=== PATIENT | female | born 1995 | race Caucasian/White ===

== ENCOUNTER 2017-01-31 17:39 | Inpatient (IN) | payer BC ==
[~2017-01-31] VITALS: Ht 160 cm; Wt 61.1 kg
[2017-01-31] MEDS ORDERED: SODIUM CHLORIDE 0.9% 1000ML 500 ML IV STA (20:00)
[2017-01-31] MEDS ORDERED: ACETAMINOPHEN 500 MG TAB PO STA (20:00)
[2017-01-31] MEDS ORDERED: KETOROLAC TROMETHAMINE 30 MG/ML VIAL IV STA (20:00)
[2017-01-31] MEDS ORDERED: ONDANSETRON INJ 2 MG/ML 2 ML VIAL IV STA (20:00)
[2017-01-31] MEDS ORDERED: SODIUM CHLORIDE 0.9% 1000ML 1,000 ML IV STA (20:00)
[2017-01-31] MEDS ORDERED: CEFTRIAXONE SOD INJ 2,000 MG in DEXTROSE 5% 50ML 50 ML IV STA (20:00)
--- NOTE | 2017-01-31 20:06 | EMERGENCY ROOM VISIT NOTE ---
History Report prepared by Henrique: Jose Martinez Under the Supervision of: Dr. Misha Trotter M.D. First contact with patient: 19:46 Chief Complaint: URINARY SYMPTOMS Stated Complaint: KIDNEY INFECTION,BACK PAINAND NAUSEA Nursing Triage Summary: pt currently being treated for uti with levaquin, pt c/o lower back pain, abd pain and nausea History of Present Illness The patient is a 21 year old female who presents to the Emergency Room with complaints of worsening pain in her right lower flank pain that began this morning, several hours prior to arrival. The patient was seen at [facility], 4 days prior to this visit and was diagnosed with a Urinary/ Kidney infection. She was placed on Levaquin 750 mg following this visit. She complains that the Levaquin caused severe migraines and nausea. The patient was experiencing urinary burning, increased frequency, and increased urgency as early as 10 days before her diagnosis at [facility]. She also started to notice blood in her urine on Friday, 5 days prior to this visit. At this time the patient's urinary symptoms have resolved but the pain in her right flank has worsened significantly. She rates her current pain as a 7/10 in severity. The patient is still nauseous but has not vomited. She has no history of kidney infection or kidney stones, but notes that her father gets kidney stones frequently. Source of History: patient Onset: Several Hours SONOGRAPHY TECHNICIAN Position: back (Right Lower Flank) Symptom Intensity: 7/10 in severity Timing: worsening Associated Symptoms: + headache, + nausea, No urinary symptoms, No vomiting Review of Systems See HPI for pertinent positives & negatives. A total of 10 systems reviewed and were otherwise negative. Past Medical & Surgical Patient denies any past medical/surgical histories. Family History Cancer Diabetes mellitus Hypertension Social History Smoking Status: Never Smoker Marital Status: in relationship Housing Status: lives with roommate Occupation Status: [employer] student Current/Historical Medications Scheduled Levofloxacin (Levaquin), 750 MG PO DAILY Scheduled PRN Ondasetron Odt (Zofran Odt), 4 MG SL UD PRN for Nausea Allergies Coded Allergies: No Known Allergies (Unverified , 01/31/17) Physical Exam Vital Signs Date Time Temp Pulse Resp B/P Pulse Ox O2 Delivery O2 Flow Rate FiO2 01/31/17 22:33 72 16 105/78 97 Room Air 01/31/17 21:12 59 16 109/73 98 01/31/17 20:09 55 16 121/84 98 Room Air 01/31/17 17:46 37.0 58 18 121/80 98 Room Air Physical Exam GENERAL: Patient is in no acute distress. HEENT: No acute trauma, normocephalic atraumatic, mucous membranes moist, no nasal congestion, no scleral icterus. NECK: No stridor, no adenopathy, no meningismus, trachea is midline. LUNGS: Clear to auscultation bilaterally, no wheeze, no rhonchi, breath sounds equal. HEART: Without murmurs gallops or rubs, regular rate and rhythm. ABDOMEN: Tender primarily in the LUQ, but there is some diffuse mild tenderness. Soft, bowel sounds positive, no hernias, no peritonitis. BACK: Bilateral flank discomfort with percussion. EXTREMITIES: No cyanosis or edema, full range of motion of all the joints without pain or difficulty, no signs for acute trauma. NEUROLOGIC: Oriented x 3, no acute motor or sensory deficits, no focal weakness. SKIN: No rash, no jaundice, no diaphoresis. Medical Decision & Procedures ER Provider Diagnostic Interpretation: X ray results and stated below per my interpretation and radiologist interpretation. Other radiology results and stated below per my review and radiologist interpretation: CT OF THE ABDOMEN AND PELVIS WITHOUT CONTRAST, STONE PROTOCOL CLINICAL HISTORY: Flank pain. Hematuria. Kidney infection. COMPARISON STUDY: None. TECHNIQUE: Helical axial images of the abdomen and pelvis were obtained without IV or oral contrast according to renal stone protocol. FINDINGS: Note is made of a 2 mm calculus within the midpole of the right kidney. There are no ureteral calculi. There is no hydronephrosis or hydroureter. Evaluation of the remainder of the abdomen and pelvis is suboptimal on this unenhanced exam. The liver, spleen, adrenal glands and pancreas are normal. There is no evidence for a bowel obstruction and the appendix is normal. A small amount of fluid within the pelvis is noted. This may be physiologic. There is no lymphadenopathy. Incidental note is made of grade I anterolisthesis of L5 on S1 due to bilateral L5 pars defects. IMPRESSION: 1. 2 mm right renal calculus. No ureteral calculi or hydronephrosis. 2. Normal appendix. 3. Grade I anterolisthesis of L5 on S1 due to bilateral L5 pars defects. 4. Small amount of fluid within the pelvis which is likely physiologic. Electronically signed by: Saul Redmond M.D. 01/31/2017 8:42 PM Dictated Date/Time: 01/31/2017 8:38 PM Laboratory Results 01/31/17 20:10 Red Blood Count 4.94, Mean Corpuscular Volume 84.0, Mean Corpuscular Hemoglobin 28.5, Mean Corpuscular Hemoglobin Concent 34.0, Mean Platelet Volume 10.5, Neutrophils (%) (Auto) 70.2, Lymphocytes (%) (Auto) 21.4, Monocytes (%) (Auto) 6.3, Eosinophils (%) (Auto) 1.8, Basophils (%) (Auto) 0.1, Neutrophils # (Auto) 9.53, Lymphocytes # (Auto) 2.91, Monocytes # (Auto) 0.86, Eosinophils # (Auto) 0.25, Basophils # (Auto) 0.02 01/31/17 20:10 Test 01/31/17 19:55 01/31/17 20:10 Urine Color YELLOW Urine Appearance CLEAR (CLEAR) Urine pH 6.5 (4.5-7.5) Urine Specific [place] 1.017 (1.000-1.030) Urine Protein NEG (NEG) Urine Glucose (UA) NEG (NEG) Urine Ketones NEG (NEG) Urine Occult Blood NEG (NEG) Urine Nitrite NEG (NEG) Urine Bilirubin NEG (NEG) Urine Urobilinogen NEG (NEG) Urine Leukocyte Esterase NEG (NEG) Urine Test NEG (NEG) White Blood Count 13.60 K/uL (4.8-10.8) Red Blood Count 4.94 M/uL (4.2-5.4) Hemoglobin 14.1 g/dL (12.0-16.0) Hematocrit 41.5 % (37-47) Mean Corpuscular Volume 84.0 fL (80-100) Mean Corpuscular Hemoglobin 28.5 pg (25-34) Mean Corpuscular Hemoglobin Concent 34.0 g/dl (32-36) Platelet Count 242 K/uL (130-400) Mean Platelet Volume 10.5 fL (7.4-10.4) Neutrophils (%) (Auto) 70.2 % Lymphocytes (%) (Auto) 21.4 % Monocytes (%) (Auto) 6.3 % Eosinophils (%) (Auto) 1.8 % Basophils (%) (Auto) 0.1 % Neutrophils # (Auto) 9.53 K/uL (1.4-6.5) Lymphocytes # (Auto) 2.91 K/uL (1.2-3.4) Monocytes # (Auto) 0.86 K/uL (0.11-0.59) Eosinophils # (Auto) 0.25 K/uL (0-0.5) Basophils # (Auto) 0.02 K/uL (0-0.2) RDW Standard Deviation 39.0 fL (36.4-46.3) RDW Coefficient of Variation 13.0 % (11.5-14.5) Immature Granulocyte % (Auto) 0.2 % Immature Granulocyte # (Auto) 0.03 K/uL (0.00-0.02) Anion Gap 6.0 mmol/L (3-11) Est Creatinine Clear Calc Drug Dose 110.8 ml/min Estimated GFR () 146.7 Estimated GFR (Non- 126.5 BUN/Creatinine Ratio 15.6 (10-20) Calcium Level 9.3 mg/dl (8.5-10.1) Total Bilirubin 0.3 mg/dl (0.2-1) Aspartate Amino Transf (AST/SGOT) 15 U/L (15-37) Alanine Aminotransferase (ALT/SGPT) 20 U/L (12-78) Alkaline Phosphatase 71 U/L (45-117) Total Protein 7.8 gm/dl (6.4-8.2) Albumin 4.3 gm/dl (3.4-5.0) Globulin 3.5 gm/dl (2.5-4.0) Albumin/Globulin Ratio 1.2 (0.9-2) Lipase 117 U/L (73-393) Laboratory results reviewed by me. Medications Administered Medications (Trade) Dose Ordered Sig/Jermain Route Start Time Stop Time Status Last Admin Dose Admin Sodium Chloride (Nss 1000ml) 500 ml @ 999 mls/hr Q31M STAT IV 01/31/17 20:00 01/31/17 20:30 DC 01/31/17 20:15 999 MLS/HR Ondansetron HCl 4 mg 4 mg NOW STAT IV 01/31/17 20:00 01/31/17 20:03 DC 01/31/17 20:14 4 MG Sodium Chloride (Nss 1000ml) 1,000 ml @ 200 mls/hr Q5H STAT IV 01/31/17 20:00 02/01/17 00:56 DC 01/31/17 20:15 200 MLS/HR Ketorolac Tromethamine (Toradol Inj) 30 mg NOW STAT IV 01/31/17 20:00 01/31/17 20:03 DC 01/31/17 20:14 30 MG Acetaminophen 1000 mg 1,000 mg NOW STAT PO 01/31/17 20:00 01/31/17 20:03 DC 01/31/17 20:14 1,000 MG Ceftriaxone Sodium/Dextrose (Rocephin Inj/D5 50ml) 70 ml @ 100 mls/hr ONE STAT IV 01/31/17 20:00 01/31/17 20:41 DC 01/31/17 20:16 100 MLS/HR Acetaminophen (Tylenol Tab) 650 mg Q4H PRN PO 01/31/17 22:45 03/02/17 22:44 02/01/17 00:31 650 MG ED Course 1952: The patient was evaluated in room A12. A complete history and physical exam was performed. 1999: Ordered Ceftriaxone 70 mL @ 100 mL/hr IV, Acetaminophen 1000 mg PO, Toradol 30 mg IV, Sodium Chloride 1000 mL @ 200 mL/hr IV, Zofran 4 mg IV, Sodium Chloride 500 mL @ 999 mL/hr IV. 2010: Ordered Rocephin 2 gm IV. 2110: I discussed the case with Dr. Mayra Stephens [facility] Hospitalist, he will evaluate the patient for further treatment. 2113: I reevaluate the patient at this time. She is agreeable to admission. Medical Decision Differential Diagnosis includes; failure of out patient therapy, renal colic, pyelonephritis, renal failure, electrolyte imbalance, , and hydronephrosis . There is a mild leukocytosis which would be consistent with infection. No anemia. No significant electrolyte abnormality or kidney failure. Abdominal and pelvis CT shows a stone within a kidney, there was no hydronephrosis. No evidence for acute surgical process by CT scan. Urinalysis was clean, no hematuria, no infection. testing was negative. The patient received IV Toradol, IV saline, IV Zofran and IV ceftriaxone. She was given oral Tylenol. The patient likely has pyelonephritis. Her symptoms have worsened and are now bilateral instead of just on the right. She is failing outpatient therapy. Admission/observation for IV antibiotics and symptom control is indicated. I spoke to the patient and case work aide. The on-call hospitalist was consulted. Consults Time Called: 2104 Consulting Physician: Dr. Mayra FULLER Hospitalist Returned Call: 2110 I discussed the case with Dr. Mayra FULLER Hospitalist, he will evaluate the patient for further treatment. Impression Primary Impression: Pyelonephritis Additional Impression: Failure of outpatient treatment Scribe Attestation The scribe's documentation has been prepared under my direction and personally reviewed by me in its entirety. I confirm that the note above accurately reflects all work, treatment, procedures, and medical decision making performed by me. Departure Information Dispostion Being Evaluated By Hospitalist Referrals [facility] (PCP) Patient Instructions My [facility] Health Problem Qualifiers
[2017-01-31] MEDS ORDERED: CEFTRIAXONE SOD INJ 1 GM ADDVIAL ONE (20:11)
[2017-01-31 20:20] LABS: BASO % 0.1 %; BASO ABS # 0.02 K/uL (0-0.2); COMPLETE YES; EOS % 1.8 %; HEMATOCRIT 41.5 % (37-47); IG% 0.2 %; LYMPH % 21.4 %; LYMPH ABS # 2.91 K/uL (1.2-3.4); MEAN CORPUSCULAR HEMOGLOBIN 28.5 pg (25-34); MEAN PLATELET VOLUME 10.5 fL (7.4-10.4); MONO % 6.3 %; NEUT % 70.2 %; PLATELET COUNT 242 K/uL (130-400); RED BLOOD COUNT 4.94 M/uL (4.2-5.4)
[2017-01-31 20:21] LABS: URINE APPEARANCE CLEAR (CLEAR); URINE BILIRUBIN NEG (NEG); URINE COLOR YELLOW; URINE NITRITE NEG (NEG); URINE PH 6.5 (4.5-7.5); URINE SPECIFIC GRAVITY 1.017 (1.000-1.030); UROBILINOGEN NEG (NEG); ZZUR CULT IF INDIC CLEAN CATCH NO
[2017-01-31 20:27] LABS: MANUAL MICROSCOPIC REQUIRED? NO; REVIEW REQ? NO
[2017-01-31] MEDS ORDERED: ONDA4TAB46 PO (20:40)
[2017-01-31] MEDS ORDERED: LEVO1TAB33 PO (20:40)
--- NOTE | 2017-01-31 20:43 | DIAGNOSTIC IMAGING REPORT ---
CT OF THE ABDOMEN AND PELVIS WITHOUT CONTRAST, STONE PROTOCOL CLINICAL HISTORY: Flank pain. Hematuria. Kidney infection. COMPARISON STUDY: None. TECHNIQUE: Helical axial images of the abdomen and pelvis were obtained without IV or oral contrast according to renal stone protocol. FINDINGS: Note is made of a 2 mm calculus within the midpole of the right kidney. There are no ureteral calculi. There is no hydronephrosis or hydroureter. Evaluation of the remainder of the abdomen and pelvis is suboptimal on this unenhanced exam. The liver, spleen, adrenal glands and pancreas are normal. There is no evidence for a bowel obstruction and the appendix is normal. A small amount of fluid within the pelvis is noted. This may be physiologic. There is no lymphadenopathy. Incidental note is made of grade I anterolisthesis of L5 on S1 due to bilateral L5 pars defects. IMPRESSION: 1. 2 mm right renal calculus. No ureteral calculi or hydronephrosis. 2. Normal appendix. 3. Grade I anterolisthesis of L5 on S1 due to bilateral L5 pars defects. 4. Small amount of fluid within the pelvis which is likely physiologic. Electronically signed by: Saul Redmond M.D. 01/31/2017 8:42 PM Dictated Date/Time: 01/31/2017 8:38 PM
[2017-01-31] MEDS ORDERED: ONDA4TAB10 SL (20:45)
[2017-01-31] MEDS ORDERED: LEVO-18 PO (20:45)
[2017-01-31 20:46] LABS: BUN/CREATININE RATIO 15.6 (10-20); CALCIUM 9.3 mg/dl (8.5-10.1); CREATININE 0.67 mg/dl (0.60-1.20); POTASSIUM 3.6 mmol/L (3.5-5.1)
[2017-01-31 20:48] LABS: ALB/GLOB RATIO 1.2 (0.9-2)
--- NOTE | 2017-01-31 22:34 | History and Physical ---
History & Physical Date & Time of Service: Jan 31, 2017 at 22:27 Chief Complaint: Kidney Infection,Back Painand Nausea Primary Care Physician: [facility] History of Present Illness Source: patient 21 y/o F with no known medical history. She developed back pain and dysuria 5 days prior and states she was diagnosed with a kidney infection. She was prescribed Levaquin 750mg daily. She has not had fevers, rigors or n/v. She states however that her back pain has worsened despite compliance with her medications. An outpt culture apparently grew out pansensitive E Coli. There is no evidence of Pyelo or [place] on CT scan. Labs are notable for leukocytosis only. Past Medical/Surgical History No active medical issues Family History Cancer Diabetes mellitus Hypertension Mother w/HTN Father with "enlarged heart" and renal calculi Social History Does not smoke - occasional ETOH - Mechanical engineering major at [employer] Smoking Status: Never Smoker Marital Status: in relationship Occupational Status: [employer] student Allergies Coded Allergies: No Known Allergies (Unverified , 01/31/17) Home Medications Scheduled Levofloxacin (Levaquin), 750 MG PO DAILY Scheduled PRN Ondasetron Odt (Zofran Odt), 4 MG SL UD PRN for Nausea Review of Systems Constitutional: No chills, No fever, No sweats Eyes: No eye pain, No worsening of vision ENT: No hearing loss, No nasal symptoms, No unusual epistaxis Respiratory: No cough, No dyspnea at rest, No dyspnea on exertion, No shortness of breath, No sputum, No wheezing Cardiovascular: No PND, No chest pain, No orthopnea Abdomen: No nausea, No pain, No vomiting Musculoskeletal: + problem reported (Back pain), No joint pain Genitourinary - Female: + problem reported (Flank pain ), No dysuria, No hematuria, No urinary frequency, No urinary incontinence, No urinary retention, No urinary urgency Neurologic: No memory loss, No paralysis, No weakness Psychiatric: No depression symptoms Endocrine: No fatigue Hematologic / Lymphatic: No abnormal bleeding/bruising Integumentary: No rash Physical Exam Vital Signs Date Time Temp Pulse Resp B/P Pulse Ox O2 Delivery O2 Flow Rate FiO2 01/31/17 21:12 59 16 109/73 98 01/31/17 20:09 55 16 121/84 98 Room Air 01/31/17 17:46 37.0 58 18 121/80 98 Room Air General Appearance: WD/WN, no apparent distress Head: normocephalic Eyes: normal inspection, PERRL, EOMI ENT: normal ENT inspection, pharynx normal Neck: supple, no JVD Respiratory/Chest: chest non-tender, lungs clear, normal breath sounds, no respiratory distress, no accessory muscle use Cardiovascular: regular rate, rhythm, no edema, no gallop, no JVD, no murmur, normal peripheral pulses Abdomen/GI: normal bowel sounds, non tender, soft Back: + left CVA tenderness, + right CVA tenderness, + pertinent finding (Pt is very tender B/L at flanks - no tenderness over mid back/spine) Extremities/Musculoskelatal: normal inspection 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, no motor/sensory deficits, alert, oriented x 3 Skin: normal color Diagnostics Laboratory Results Results Past 24 Hours Test 01/31/17 19:55 01/31/17 20:10 Range/Units Urine Color YELLOW Urine Appearance CLEAR CLEAR Urine pH 6.5 4.5-7.5 Urine Specific [place] 1.017 1.000-1.030 Urine Protein NEG NEG Urine Glucose (UA) NEG NEG Urine Ketones NEG NEG Urine Occult Blood NEG NEG Urine Nitrite NEG NEG Urine Bilirubin NEG NEG Urine Urobilinogen NEG NEG Urine Leukocyte Esterase NEG NEG Urine Test NEG NEG White Blood Count 13.60 4.8-10.8 K/uL Red Blood Count 4.94 4.2-5.4 M/uL Hemoglobin 14.1 12.0-16.0 g/dL Hematocrit 41.5 37-47 % Mean Corpuscular Volume 84.0 80-100 fL Mean Corpuscular Hemoglobin 28.5 25-34 pg Mean Corpuscular Hemoglobin Concent 34.0 32-36 g/dl Platelet Count 242 130-400 K/uL Mean Platelet Volume 10.5 7.4-10.4 fL Neutrophils (%) (Auto) 70.2 % Lymphocytes (%) (Auto) 21.4 % Monocytes (%) (Auto) 6.3 % Eosinophils (%) (Auto) 1.8 % Basophils (%) (Auto) 0.1 % Neutrophils # (Auto) 9.53 1.4-6.5 K/uL Lymphocytes # (Auto) 2.91 1.2-3.4 K/uL Monocytes # (Auto) 0.86 0.11-0.59 K/uL Eosinophils # (Auto) 0.25 0-0.5 K/uL Basophils # (Auto) 0.02 0-0.2 K/uL RDW Standard Deviation 39.0 36.4-46.3 fL RDW Coefficient of Variation 13.0 11.5-14.5 % Immature Granulocyte % (Auto) 0.2 % Immature Granulocyte # (Auto) 0.03 0.00-0.02 K/uL Sodium Level 139 136-145 mmol/L Potassium Level 3.6 3.5-5.1 mmol/L Chloride Level 107 98-107 mmol/L Carbon Dioxide Level 26 21-32 mmol/L Anion Gap 6.0 3-11 mmol/L Blood Urea Nitrogen 10 7-18 mg/dl Creatinine 0.67 0.60-1.20 mg/dl Est Creatinine Clear Calc Drug Dose 110.8 ml/min Estimated GFR () 146.7 Estimated GFR (Non- 126.5 BUN/Creatinine Ratio 15.6 10-20 Random Glucose 81 70-99 mg/dl Calcium Level 9.3 8.5-10.1 mg/dl Total Bilirubin 0.3 0.2-1 mg/dl Aspartate Amino Transf (AST/SGOT) 15 15-37 U/L Alanine Aminotransferase (ALT/SGPT) 20 12-78 U/L Alkaline Phosphatase 71 45-117 U/L Total Protein 7.8 6.4-8.2 gm/dl Albumin 4.3 3.4-5.0 gm/dl Globulin 3.5 2.5-4.0 gm/dl Albumin/Globulin Ratio 1.2 0.9-2 Lipase 117 73-393 U/L Diagnostic Radiology CT abdomen 1. 2 mm right renal calculus. No ureteral calculi or hydronephrosis. 2. Normal appendix. 3. Grade I anterolisthesis of L5 on S1 due to bilateral L5 pars defects. Impression Assessment and Plan 21 y/o F with no known medical history. She developed back pain and dysuria 5 days prior and states she was diagnosed with a kidney infection. She was prescribed Levaquin 750mg daily. She has not had fevers, rigors or n/v. She states however that her back pain has worsened despite compliance with her medications. An outpt culture apparently grew out pansensitive E Coli. There is no evidence of Pyelo or [place] on CT scan. Labs are notable for leukocytosis only. It is unclear why she has not completely resolved with Levaquin. Her UA is clean likely as a result of antibiotics however she has leukocytosis and is exceptionally tender at her flanks. There are no abnormalities to explain this on CT. Pt placed on Ceftriaxone pending repeat cultures. Full code - Lovenox prophylaxis Total time for this admit including review of records, labs, imaging - discussion with pt and ER MA - 28 min Level of Care Med/Surg Resuscitation Status FULL RESUSCITATION VTE Prophylaxis Given or contraindicated: Enoxaparin (Lovenox)SQ
[2017-01-31] MEDS ORDERED: POLYETHYLENE (MIRALAX) 17 GM PACK PO PRN (22:45)
[2017-01-31] MEDS ORDERED: MAGNESIUM HYDROXIDE SUSP 30 ML UDC PO PRN (22:45)
[2017-01-31] MEDS ORDERED: ALUMINUM/MAGNESIUM/SIMETH (MAALOX MAX) 30 ML UDC PO PRN (22:45)
[2017-01-31] MEDS ORDERED: ZOLPIDEM TARTRATE 5 MG TAB PO PRN (22:45)
[2017-01-31] MEDS ORDERED: ONDANSETRON INJ 2 MG/ML 2 ML VIAL IV PRN (22:45)
[2017-02-01] MEDS: ACETAMINOPHEN 325 MG TAB PO PRN ×2 (00:31→12:31)
[2017-02-01 00:36] VITALS: BP 108/70; PULSE 68; TEMP 36.8; Ht 160 cm; Wt 61.1 kg
[2017-02-01 06:21] LABS: HEMATOCRIT 39.4 % (37-47); MEAN CELL VOLUME 84.5 fL (80-100); MEAN PLATELET VOLUME 10.5 fL (7.4-10.4); PLATELET COUNT 211 K/uL (130-400); RED BLOOD COUNT 4.66 M/uL (4.2-5.4); WHITE BLOOD COUNT 9.62 K/uL (4.8-10.8)
[2017-02-01 07:48] VITALS: BP 96/59; PULSE 67; TEMP 36.5; O2SAT 98
[2017-02-01 08:00] VITALS: O2SAT 98
--- NOTE | 2017-02-01 10:20 | Family Medicine Progress Note ---
Progress Note Date of Service Feb 01, 2017.
[2017-02-01] MEDS ORDERED: ENOXAPARIN 40 MG/0.4 ML SYR SQ SCH (12:00)
--- NOTE | 2017-02-01 14:45 | Discharge Instructions ---
Discharge Instructions Date of Service Feb 01, 2017. Admission Reason for Admission: Pyelonephritis Discharge Discharge Diagnosis / Problem: Pyelonephritis Discharge Goals Goal(s): Decrease discomfort, Improve disease control, Learn about illness, Therapeutic intervention, Prevent Disease Progression Activity Recommendations Activity Limitations: resume your previous activity . Instructions / Follow-Up Instructions / Follow-Up You were diagnosed with pyelonephritis. Please continue to take your antibiotics as prescribed. Please take 20 minutes after food. We will be giving you Bactrim which you can pick up attendant at your pharmacy. Continue to rest and drink plenty of fluids. 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 If you have any worsening pain when you pee, blood in your urine, fevers greater than 100.5 or nausea/vomiting then please come back to the emergency department. Please follow up with your PCP this coming. Current Hospital Diet Patient's current hospital diet: Regular Diet Discharge Diet Recommended Diet: Regular Diet Pending Studies Studies pending at discharge: no Medical Emergencies . Who to Call and When: Medical Emergencies: If at any time you feel your situation is an emergency, please call 911 immediately. . Non-Emergent Contact Non-Emergency issues call your: Primary Care Provider . . "Provider Documentation" section prepared by Kedar Ortiz. . VTE Core Measure Inpt VTE Proph given/why not?: Enoxaparin (Lovenox)SQ
[2017-02-01] MEDS ORDERED: SULF800T23 PO (14:47)
[2017-02-01 14:52] VITALS: BP 96/59; PULSE 67; TEMP 36.5; O2SAT 98
--- NOTE | 2017-02-01 14:58 | Discharge Summary ---
Discharge Summary Date of Service Feb 01, 2017. (Kedar Ortiz MD) Discharge Summary Admission Date: Jan 31, 2017 at 22:45 Discharge Date: Feb 01, 2017 Discharge Disposition: Home Principal Diagnosis: Pyelonephritis (Kedar Ortiz MD) Medication Reconciliation New Medications: Sulfamethoxazole-Trimethoprim (Bactrim Ds 800MG/160MG) 1 Tab Tab 1 TAB PO BID for 5 Days, #10 TAB Continued Medications: Ondasetron Odt (Zofran Odt) 4 Mg Tab 4 MG SL UD PRN for Nausea, TAB Discontinued Medications: Levofloxacin (Levaquin) 750 Mg Tab 750 MG PO DAILY for 7 Days, #7 TAB PRESCRIBED 01/27/2017, TAKE DIRECTED UNTIL GONE Discharge Exam Patient in no acute distress overnight. Patient has been eating and drinking adequately. She denies any fevers, night sweats or chills. Denies any dysuria, haematuria, or discolouration of urine. Denies abdominal pain, nausea or vomiting Still complaining of bilateral back pain that is resolving Review of Systems: Constitutional: No chills, No fever, No sweats Abdomen: No nausea, No pain, No vomiting Musculoskeletal: + problem reported (back paun) Genitourinary - Female: No dysuria, No hematuria, No urinary frequency Physical Exam: General Appearance: WD/WN, no apparent distress Respiratory/Chest: lungs clear, normal breath sounds, no respiratory distress, no accessory muscle use Cardiovascular: regular rate, rhythm, no edema, normal peripheral pulses Abdomen / GI: normal bowel sounds, soft, + tenderness (mild tenderness in LUQ) Extremities: normal capillary refill, normal range of motion, + pertinent finding (mild bilateral CVA tenderness to palpation) (Kedar Ortiz MD) Hospital Course 21 year old female with no known medical history. She developed back pain and dysuria 5 days prior and was started on levaquin for a kidney infection. She has not had any fevers, rigors or n/v. She said the back pain was worsened despite compliance with her meds. Patient had a CT scan done which was negative for Pyelonephritis or Hydronephrosis. She was put on Ceftriaxone IV with repeat UA which returned as negative. Patient was discharged on 02/01/2017 as she was hemodynamically stable and in no acute distress. She was discharged on bactrim bid for 5 days as well as zofran for nausea. Total Time Spent: Less than 30 minutes This includes examination of the patient, discharge planning, medication reconciliation, and communication with other providers. (Kedar Ortiz MD) Discharge Instructions Please refer to the electronic Patient Visit Report (Discharge Instructions) for additional information. (Kedar Ortiz MD) Additional Copies To [facility] History Resident Physician Supervision Note: I was present with Dr. Ortiz during the history and exam. I discussed the case with the resident and agree with the findings and plan as documented in the note. Any exceptions or clarifications are listed here. Pt reports continued improvement in flank pain which is now described as a 4/10 with mild nausea. She has concerns re: final exams coming this week and her hospitalization. She reports no FIELDS, lightheadedness, SOB, v/d/c. (Hoang Narayanan MD) General Appearance: WD/WN, no apparent distress Respiratory: chest non-tender, lungs clear, normal breath sounds, no respiratory distress Cardiovascular: normal peripheral pulses, regular rate, rhythm, no edema, no murmur Gastrointestinal: normal bowel sounds, non tender, soft, no organomegaly, other (+superficial CVA TTP (not percussive, barely palpation)) (Hoang Narayanan MD) Assessment/Plan 21 y/o female without known medical history p/w pyelonephritis and medication reaction Pyelo - former C/S unavailable but reported as hills-sensitive - step down to bactrim DS from ceftriaxone w/ ondansetron for sx control and naproxen for pain. Rec'd close f/u with PCP and reviewed precautions re: worsening/changing symptoms, medication reactions. (Hoang Narayanan MD)
[2017-02-01] MEDS ORDERED: NAPR-1169 PO (15:26)
[2017-02-01] MEDS ORDERED: ONDA4TAB46 PO (15:28)
[2017-02-01] MEDS ORDERED: CEFTRIAXONE SOD INJ 1 GM in DEXTROSE 5% ADD-VANTAGE 50ML 50 ML IV SCH (20:00)
[2017-06-30] MEDS ORDERED: PROP40TA5 PO (14:55)
[2017-06-30] MEDS ORDERED: RIZA5TAB10 PO (14:55)
== END 2017-02-01 16:16 | disposition home or self-care (01) | DRG 690 ==
LOC: ENRESERVDT → ENRESERVTM → C.EDB 17:42 → C.MS2W 22:45
PROVIDERS: ADMIT Internal Medicine; ATTEND Family Medicine
DX: N12 Tubulo-interstitial nephritis, not specified as acute or chronic (principal)